=== PATIENT | female | born 1980 | race Caucasian/White ===

== ENCOUNTER 2016-06-15 10:45 | Inpatient (IN) | payer OTHER ==
[~2016-06-15] VITALS: Ht 162.6 cm; Wt 91.5 kg
[2016-06-15] MEDS ORDERED: BENA25CA4 PO (11:07)
[2016-06-15] MEDS ORDERED: NS 1,000 ML IV ONE (12:15)
[2016-06-15 12:31] LABS: CONTROL LINE HCG INT CTR LINE PRESENT
[2016-06-15 12:44] LABS: ALBUMIN/GLOBULIN RATIO 1.29 (1.00-1.93); ALKALINE PHOSPHATASE 70 U/L (45-117); ALT/SGPT 23 U/L (12-78); ANION GAP 9 MEQ/L (8-16); AST/SGOT 12 U/L (15-37); BILIRUBIN,DIRECT < 0.1 MG/DL (0.0-0.2); BILIRUBIN,TOTAL 0.3 MG/DL (0.2-1.0); BLOOD UREA NITROGEN 11 MG/DL (7-18); CALCIUM LEVEL 8.8 MG/DL (8.5-10.1); CARBON DIOXIDE LEVEL 26 MEQ/L (21-32); CHLORIDE LEVEL 105 MEQ/L (98-107); CREATININE FOR GFR 0.74 MG/DL (0.55-1.02); GLOMERULAR FILTRATION RATE > 60.0 (>60); GLUCOSE, FASTING 83 MG/DL (70-105); POTASSIUM SERUM 3.5 MEQ/L (3.5-5.1); SODIUM LEVEL 140 MEQ/L (136-145); TOTAL PROTEIN 7.1 GM/DL (6.4-8.2)
[2016-06-15 13:01] LABS: ERYTHROCYTE SEDIMENTATION RATE 15 mm/hr (0-20); MYOGLOBIN 37 NG/ML (13-71)
[2016-06-15 14:59] LABS: BASO % 0.3 % (0.0-1.0); EOS % 0.2 % (0.0-3.0); LARGE UNSTAINED CELL # 0.2 K/mm3 (0.0-0.4); LARGE UNSTAINED CELL % 1.3 % (0.0-4.0); LYMPH # 4.9 K/mm3 (1.5-4.5); MEAN CORPUSCULAR HEMOGLOBIN 27.9 pg (27.0-33.0); MEAN CORPUSCULAR HGB CONC 33.2 g/dl (32.0-36.5); MEAN CORPUSCULAR VOLUME 84.1 fl (80.0-96.0); MONO # 0.7 K/mm3 (0.0-0.8); MONO % 4.8 % (0.0-5.0); NEUTROPHILS % 60.4 % (36.0-66.0); PLATELET COUNT, AUTOMATED 364 k/mm3 (150-450); RED CELL DISTRIBUTION WIDTH 12.6 % (11.5-14.5); WHITE BLOOD COUNT 14.8 K/mm3 (4.0-10.0)
[2016-06-15] MEDS ORDERED: ONDANSETRON 4 MG TAB (S0181) PO PRN (15:15)
[2016-06-15] MEDS ORDERED: ONDANSETRON 4MG/2ML VIAL (J2405) IV PRN (15:15)
--- NOTE | 2016-06-15 16:11 | HPEPDOC ---
General Date of Admission Jun 15, 2016 at 15:02 Other Providers PCP: Dr. Greyson Parker Attending Physician: VICKI NAVARRO Chief Complaint The patient is a 35-year-old female admitted with a reason for visit of Pre- Syncope. Source: Patient Exam Limitations: No limitations Timing/Duration: Day(s) (11), This morning Severity: Moderate Associated Symptoms: Cough, Rash, Weakness, Dizziness History of Present Illness PRIMARY CARE PROVIDER: Dr. Greyson Parker CHIEF COMPLAINT: dizziness, heart palpitations, feels like fainting, facial flushing, tremors, upper extremity rash x 4-6 episodes HISTORY OF PRESENT ILLNESS: This is a 35-year-old female with a past medical history of a heart murmur, fibromyalgia, gestational diabetes, mononucleosis when a teenager, influenza A, history of chronic upper respiratory tract infections with secondary dehydration, who presents today for an on and off 11 day history of 4 -6 episodes of pre-syncope associated with dizziness, facial flushing, heart palpitations, chills, tremors, cool extremities, and "mottling/blotchiness of the arms and legs". 2 Fridays ago, patient went to the ER for the above symptoms in [place] and was diagnosed with influenza A, was given IV fluids for dehydration, and sent home. The second episode of presyncope occurred on June 05 and the patient was seen in [place] ER for vomiting and diarrhea, and sent back home. The third episode occurred on June 06 and the patient was seen in [place] ER for similar symptoms as well as burning in the chest and dizziness, which was thought to be indigestion from vomiting and influenza and the patient was treated with Maalox, Pepcid, Viscous Lidocaine, fluids, pantoprazole, and Tessalon Perles. She was then sent home. The fourth episode occurred last Tuesday night 4 days ago and the patient was seen in [facility] ER. She reports that she felt like she was going to pass out again, became dizzy , tachypneic, had cold extremities, and a hot face. States that she was told that it was a histamine allergic reaction was given IV Benadryl, and sent home with 40 mg of prednisone, 40 mg of pantoprazole on discharge, and told to follow -up with her PCP. Yesterday, the patient states she was in the [facility] ER and seen for the same symptoms and given Solu-Medrol, Benadryl, Pepcid, and told to follow up with her PCP. Patient states that she tried to get an early appointment with her PCP yesterday however he was not able to see her earlier than today. She was advised by her PCP to stop taking prednisone and pantoprazole around 4 PM yesterday. 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 States she was in between patients when another episode of her presyncope occurred. She also states that her eyes have a foggy sensation to them when episodes occur. In addition, the patient states that the episodes occur in waves, they have a sudden onset, they get worse as time goes on and buildup, and then they calm down. She also admits that the dizziness is more of a lightheadedness and motion sickness-type feeling but not a room spinning dizziness. At this point in time, the patient states she has a massive headache, ears feel plugged, she has a sore throat, and her sinuses are burning from her face down to her stomach. The patient denies fever, chills, nausea, vomiting, diarrhea, muscle aches/pains , dysuria, hematuria. She admits to severe exhaustion, neck tightness, cough, constipation, burning in the head and a headache, plugged ears, burning type chest pain that comes from the stomach up, soreness and burning in the abdomen, petechiae. She also admits to a mucousy stool from the day prior. In the [facility] emergency department, a workup was done that showed an unremarkable CBC with a mildly elevated WBC of 14.8, CMP which was within normal limits, one negative troponin, negative CRP, negative test, and negative d-dimer. An EKG that showed sinus rhythm at a rate of 62 bpm with a normal axis and no ST segment elevation/depression with some low voltage and precordial leads. Orthostatic vitals were done which were also negative. The patient was treated with 1 L of normal saline IV bolus, 4 mg of Zofran, given a Zofran injection, and 600 mg of ibuprofen. ALLERGIES: Acetaminophen associated with elevated liver function tests Amoxicillin associated with anaphylaxis Trovafloxacin associated with anaphylaxis Seasonal allergies PAST MEDICAL HISTORY: Heart murmur Fibromyalgia Gestational diabetes Mononucleosis when teenager Influenza every Chronic upper respiratory tract infections and secondary dehydration PAST SURGICAL HISTORY: 1 Tubal ligation Ablation Laparoscopic cholecystectomy ERCP 1997 Tonsillectomy and adenoidectomy MEDICATIONS: Benadryl. 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 No recent travel FAMILY HISTORY: Father: Multiple sclerosis, blood clots (fairly recent) Mother: Gestational diabetes Sister: Severe migraines Maternal grandparents: Hypertension and cancer of unknown type Maternal grandmother: CVA CODE STATUS: Full code No advanced directives. REVIEW OF SYSTEMS: Constitutional: denies fevers, chills, night sweats, recent weight gain/loss HEENT: Head: Admits to sinus and frontal headache. Currently, denies dizziness, light-headedness. Eyes: denies blurry vision, double vision. Ears: denies hearing loss, tinnitus, admits to plugged ears. Nose: admits to sinus pain, pressure. Denies rhinorrhea, postnasal drip. Throat: Admits to sore throat, cough, difficulty swallowing. Cardiovascular: Admits to burning from the sinuses down to through the chest and abdomen. Denies palpitations currently. Respiratory: denies shortness of breath, difficulty breathing Gastrointestinal: denies nausea, vomiting, diarrhea, melena, hematochezia. Admits to constipation and generalized soreness/burning in the abdomen. : denies dysuria, hematuria Musculoskeletal: denies muscle / joint stiffness, pain, swelling. Admits to Neck Tightness. Neurological: denies numbness, tingling, paresthesias, focal weakness. Lymphatics: Admits to feeling like her neck glands are swollen. Integumentary: Admits to mottling and blotching of her skin on her arms, hands, abdomen. Endocrine: Admits to increased urinary frequency but no burning or pain with urination. Admits to extreme fatigue. Denies polydipsia. PHYSICAL EXAMINATION: Initial ED Vitals: Temperature 97.2, pulse 74, respiratory rate 16, pulse ox: 100% room air, blood pressure 149/78 (101) General: HEENT: Head: normocephalic, atraumatic. +Tenderness to palpation of frontal, ethmoidal, and maxillary sinuses bilaterally. Eyes: pupils equally reactive to light, conjunctiva are pink, sclera are nonicteric. Nose: No external lesions. Ears: Grossly normal hearing bilaterally. Throat: buccal mucosa is pink and moist with no lesions in the oropharynx Respiratory: clear to auscultation bilaterally with no wheezes, rales, or rhonchi. Cardiovascular: regular rate and rhythm, with no murmurs, rubs or gallops. Abdomen: soft, nontender, nondistended, no hepatosplenomegaly appreciated. Bowel sounds present. Scattered Petechiae noted on abdomen. Extremities: 5/5 strength in upper and lower extremities bilaterally, no swelling in either lower extremity bilaterally. Neurological: sensation intact and symmetrical in upper and lower extremities bilaterally Musculoskeletal: some tenderness to palpation of paraspinal cervical muscles bilaterally. Lymphatics: no palpable lymph nodes, swollen glands Integumentary: +petechiae on dorsal surface of hands, arms, and abdomen Vascular: +2 dorsalis pedis and radial pulses palpable and symmetrical bilaterally LABORATORY DATA: See below MICROBOIOLOGY: See below ELECTROCARDIOGRAM: As stated above. RADIOLOGY: No imaging. ASSESSMENT: 35-year-old female is presenting for presyncopal episodes of unknown etiology. PLAN: #1. Presyncope: Admit patient to the IM service and monitor on telemetry. EKG showed normal sinus rhythm with no ST-T wave abnormalities. Orthostatics done today were negative. Obtain echocardiogram to rule out cardiac abnormality. Cycle another set of troponins as patient reports burning from her abdomen going all the way up to her chest area. Order TSH to assess for possible thyroid abnormalities. Encourage PO hydration. Hold IV fluids for now as patient tolerating PO, no electrolyte abnormalities, and was already given 1 liter bolus of IVF in ER. Zofran for nausea.1st troponin was negative in the ER. Give GI cocktail for stomach upset and burning likely secondary to GI irritation from influenza and vomiting. Give Benadryl for rash reaction. We'll order a.m. labs CBC, BMP, and Mg daily. Differential includes vasovagal syndrome , dehydration, gastroenteritis, arrhythmia, residual flulike symptoms, versus anxiety. #2 Leukocytosis of 14.8: most likely secondary to influenza/viral illness and/ or recent steroid treatments. Continue to monitor CBC. #3. Sinusitis on physical exam: Patient complaining of headache and facial sinus pressure. We'll start Sudafed. #4. Abdominal pain/Soreness: Likely secondary to flu-like illness and vomiting causing GI irritation. Patient reports burning in abdomen going all the way up to chest. Will give GI cocktail, famotidine. #5 Petechiael Rash: We'll give Benadryl for any rash/allergic reaction. #6 Fibromyalgia: Ibuprofen PRN pain. #7 DVT prophylaxis: Mechanical via SCDs. CODE STATUS: Full Code. Immunizations as per protocol. My preceptor for this patient encounter was Dr. Vicki Navarro, and was physically present in the building during the encounter and was fully available. As needed, all aspects of the patient interview, examination, medical decision making process, and medical care plan development were reviewed and approved by the preceptor. Preceptor is aware and concurs with the plan as stated in the body of this note and will attest to such by his/her cosignature. Home Medications Scheduled PRN Diphenhydramine HCl (Benadryl Allergy) 25 Mg Cap 25 MG PO PRN ALLERGIC REACTION (Reported) Allergies Coded Allergies: Amoxicillin (Verified Allergy, Severe, ANAPHYLAXIS, 06/15/16) Trovafloxacin (Verified Allergy, Severe, ANAPHYLAXIS, 06/15/16) Acetaminophen (Verified Adverse Reaction, Mild, MESSE WITH MY LIVER FUNCTION, 06/15/16) Social History * Smoker: current smoker Alcohol: Denies Drugs: denies Recent Travel/Sick Contacts: Denies: Recent sick contacts, Recent travel Vital Signs As above. Laboratory Data Labs 24H Laboratory Tests 2 06/15/16 11:31: Aspartate Amino Transf (AST/SGOT) 12L, Alanine Aminotransferase (ALT/SGPT) 23, Alkaline Phosphatase 70, Total Bilirubin 0.3, Direct Bilirubin < 0.1, Albumin 4.0, Albumin/Globulin Ratio 1.29, Anion Gap 9, White Blood Count 14.8H, Red Blood Count 4.84, Hemoglobin 13.5, Hematocrit 40.7, Mean Corpuscular Volume 84.1 , Mean Corpuscular Hemoglobin 27.9, Mean Corpuscular Hemoglobin Concent 33.2, Red Cell Distribution Width 12.6, Platelet Count 364, Neutrophils (%) (Auto) 60.4, Lymphocytes (%) (Auto) 33.0, Monocytes (%) (Auto) 4.8, Eosinophils (%) ( Auto) 0.2, Basophils (%) (Auto) 0.3, Neutrophils # (Auto) 9.0H, Lymphocytes # ( Auto) 4.9H, Monocytes # (Auto) 0.7, Eosinophils # (Auto) 0.0, Basophils # (Auto ) 0.0, C-Reactive Protein, Quantitative < 0.30, Calcium Level 8.8, Creatine Kinase MB 1.0, Creatine Kinase MB Relative Index 1.63, D-Dimer, Quantitative 490.6, Erythrocyte Sedimentation Rate 15, Glomerular Filtration Rate > 60.0, Human Chorionic Gonadotropin, Qual NEGATIVE, Large Unclassified Cells # 0.2, Large Unclassified Cells % 1.3, Myoglobin 37, Total Creatine Kinase 61, Total Protein 7.1, Troponin I < 0.02 CBC/BMP Laboratory Tests 06/15/16 11:31 Red Blood Count 4.84, Mean Corpuscular Volume 84.1, Mean Corpuscular Hemoglobin 27.9, Mean Corpuscular Hemoglobin Concent 33.2, Red Cell Distribution Width 12.6 , Neutrophils (%) (Auto) 60.4, Lymphocytes (%) (Auto) 33.0, Monocytes (%) (Auto ) 4.8, Eosinophils (%) (Auto) 0.2, Basophils (%) (Auto) 0.3, Neutrophils # (Auto ) 9.0 H, Lymphocytes # (Auto) 4.9 H, Monocytes # (Auto) 0.7, Eosinophils # (Auto ) 0.0, Basophils # (Auto) 0.0 Plan / VTE VTE Prophylaxis Ordered?: Yes (SCDs) GME ATTESTATION GME ATTESTATION My preceptor for this patient encounter was physically present in the building during the encounter and was fully available. As needed, all aspects of the patient interview, examination, medical decision making process, and medical care plan development were reviewed and approved by the preceptor. Preceptor is aware and concurs with the plan as stated in the body of this note and will attest to such by his/her cosignature. ATTENDING NOTE I, Vicki Navarro, have seen and examined the above patient and agree with the plan as documented above SHARI LOMELI OGME-1 Jun 15, 2016 16:11 VICKI NAVARRO Jun 15, 2016 21:18
[2016-06-15 16:36] VITALS: BP 105/53
[2016-06-15] MEDS ORDERED: diphenhydrAMINE 25 MG CAP PO PRN (16:45)
[2016-06-15] MEDS ORDERED: GI COCKTAIL 50ML BTL(HYOSCYAMINE/MAALOX/LIDOCAINE VISCOUS)(1:3:1) PO PRN (16:45)
[2016-06-15] MEDS: IBUPROFEN 600 MG TAB PO PRN (18:06)
[2016-06-15 20:00] VITALS: BP 127/74
[2016-06-15] MEDS: FAMOTIDINE 20 MG TAB PO SCH (20:03)
[2016-06-15 22:00] VITALS: BP 137/65
[2016-06-15 22:50] VITALS: BP 134/69
[2016-06-16] VITALS (10 sets, daily range): BP systolic 96–150; BP diastolic 53–75
[2016-06-16 00:04] LABS: MAGNESIUM LEVEL 2.2 MG/DL (1.8-2.4)
[2016-06-16] MEDS: PSEUDOEPHEDRINE 30 MG TAB PO SCH ×3 (00:18→20:34)
[2016-06-16] MEDS: PANTOPRAZOLE 40MG INJ (PROTONIX) (C9113) IV SCH ×3 (00:18→20:34)
[2016-06-16 05:35] LABS: BASO % 0.5 % (0.0-1.0); EOS # 0.1 K/mm3 (0.0-0.50); EOS % 0.6 % (0.0-3.0); LARGE UNSTAINED CELL # 0.1 K/mm3 (0.0-0.4); LARGE UNSTAINED CELL % 1.3 % (0.0-4.0); LYMPH % 52.3 % (24.0-44.0); MEAN CORPUSCULAR HEMOGLOBIN 29.5 pg (27.0-33.0); MEAN CORPUSCULAR HGB CONC 34.1 g/dl (32.0-36.5); MEAN CORPUSCULAR VOLUME 86.4 fl (80.0-96.0); MONO # 0.5 K/mm3 (0.0-0.8); MONO % 5.2 % (0.0-5.0); NEUTROPHILS # 3.8 K/mm3 (1.8-7.7); NEUTROPHILS % 40.1 % (36.0-66.0); PLATELET COUNT, AUTOMATED 282 k/mm3 (150-450); RED CELL DISTRIBUTION WIDTH 12.8 % (11.5-14.5)
[2016-06-16 05:48] LABS: WHITE BLOOD COUNT 9.4 K/mm3 (4.0-10.0)
[2016-06-16 05:57] LABS: ANION GAP 10 MEQ/L (8-16); BLOOD UREA NITROGEN 13 MG/DL (7-18); CARBON DIOXIDE LEVEL 23 MEQ/L (21-32); CHLORIDE LEVEL 105 MEQ/L (98-107); CREATININE FOR GFR 0.64 MG/DL (0.55-1.02); GLOMERULAR FILTRATION RATE > 60.0 (>60); GLUCOSE, FASTING 77 MG/DL (70-105); POTASSIUM SERUM 3.6 MEQ/L (3.5-5.1); SODIUM LEVEL 138 MEQ/L (136-145)
[2016-06-16] MEDS: VANCOMYCIN ORAL SOL 250MG/5ML ORAL SYRINGE PO SCH ×3 (06:14→17:48)
[2016-06-16] MEDS: FAMOTIDINE 20 MG TAB PO SCH ×2 (09:28→20:34)
--- NOTE | 2016-06-16 11:01 | ECGEPIP ---
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
--- NOTE | 2016-06-16 11:54 | IPNPDOC ---
Text Note Date of Service The patient was seen on 06/16/16. VS,Fishbone, I+O VS, Fishbone, I+O Laboratory Tests 06/16/16 05:21 Calcium Level 8.0 L, Red Blood Count 4.33, Mean Corpuscular Volume 86.4, Mean Corpuscular Hemoglobin 29.5, Mean Corpuscular Hemoglobin Concent 34.1, Red Cell Distribution Width 12.8, Neutrophils (%) (Auto) 40.1, Lymphocytes (%) (Auto) 52.3 H, Monocytes (%) (Auto) 5.2 H, Eosinophils (%) (Auto) 0.6, Basophils (%) ( Auto) 0.5, Neutrophils # (Auto) 3.8, Lymphocytes # (Auto) 5.0 H, Monocytes # ( Auto) 0.5, Eosinophils # (Auto) 0.1, Basophils # (Auto) 0.0 Vital Signs Date Time Temp Pulse Resp B/P Pulse Ox O2 Delivery O2 Flow Rate FiO2 06/16/16 08:30 Room Air 06/16/16 08:00 96.3 64 18 150/74 97 I&O- Last 24 Hours up to 6 AM 06/16/16 06:00 Intake Total 1200 ml Output Total 1000 ml Balance 200 ml SHARI LOMELI OGME-1 Jun 16, 2016 11:54
--- NOTE | 2016-06-16 11:58 | IPNPDOC ---
Text Note Date of Service The patient was seen on 06/16/16. NOTE Subjective: 35 yo F was seen and examined at bedside. She denies any dizziness, blurred vision, fevers, chills, chest pain, SOB, nausea, vomiting, constipation. Denies urinary incontinence, dysuria, hematuria, hematochezia. Admits to a loose unformed green mucous-type bowel movements. Admits to diarrhea , weakness and fatigue. Admits to palpitations, pressure behind her head and eyes, squeezing feeling in her shoulders, burning and flushing sensation in her neck, chest, and under armpits. Admits to soreness/burning abdominal pain, petechial rash, diarrhea, weakness, and fatigue. Nursing reports patient refusing GI cocktail. Patient states refusing GI cocktail as it does not help her and makes her nauseous. Also states that her pulse went into the 40s overnight. Objective: Vitals: T 96.3 , P64, RR 18, BP 150/74 (99), Pulse Ox: 97% on room air. I's/O's: 360/500 mLs. UO: 500 mLs General: Pleasant female resting comfortably in bed, sitting up at head of bed. Patient awake, alert and oriented, verbal and able to answer questions appropriately. She does not appear to be in any acute distress. HEENT: Normocephalic Atraumatic. Grossly normal hearing bilaterally. Sclera Nonicteric. No external nasal lesions. Endocrinology: No thyromegaly. Neck: Supple. No cervical LAD bilaterally. Heart: Regular rate and rhythm, normal S1-S2. No murmurs, rubs, clicks or gallops Chest: Symmetrical chest rise bilaterally. Lungs: Clear to auscultation bilaterally. No wheezes, rales, or rhonchi. Abdomen: Active bowel sounds, soft, nontender, no masses to palpation. Extremities: No clubbing, cyanosis, edema. Without amputations/deformities. No pedal edema. MSK: Can sit up without dizziness. Integumentary: Minor petechiae scattered on dorsal surface of upper extremities and hands. Vascular: +2 radial pulses bilaterally. Psychiatric: Noted a bit of an anxious aspect. Laboratory data: Please see below. Microbiology: Please see below. Stool cultures positive for C. difficile A/B. Imaging: No imaging done today. Assessment/Plan: ASSESSMENT: 35-year-old female is presenting for presyncopal episodes of unknown etiology. PLAN: #1. Presyncope: Continue to monitor rhythm on monitoring specialist. Orthostatics done at midnight last evening were negative in addition to the first set of orthostatics obtained prior. Follow up results of echocardiogram when available to rule out wall function abnormalities or valvular cardiac abnormalities. Troponins were negative x 3. TSH was normal at 3.010. Encourage oral hydration. Zofran for nausea. GI upset and burning sensation likely related to C. diff. Give Benadryl for rash reaction. Follow up a.m. labs CBC, BMP, and Mg in the morning. #2. C. 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 diff. Began vancomycin. Continue regular diet. Monitor for improvement to formed stools.If tolerates diet and starts having formed stools, will consider discharge in 24-48 hours. #3 Leukocytosis of 14.8: most likely secondary to influenza/viral illness and/ or recent steroid treatments. Continue to monitor CBC. #4. Sinusitis on physical exam: Patient complaining of facial sinus pressure. Continue sudafed 30 mg q6 hours as increasing sudafed dose can induce tachyphylaxis and rebound sinus pressure. Will order nasal saline spray to aid to relief sinus pressure. Will monitor for improvement. #5. Abdominal pain/Soreness: Likely secondary to C. diff, flu-like illness, and vomiting causing GI irritation. Patient reports burning in abdomen going all the way up to chest. Patient refuses GI cocktail. Will continue protonix and famotidine. #6 Petechiael Rash: We'll give Benadryl for any rash/allergic reaction. #7 Fibromyalgia: Ibuprofen PRN pain. #8 DVT prophylaxis: Mechanical via SCDs. Immunizations as per protocol. VS,Fishbone, I+O VS, Fishbone, I+O Laboratory Tests 06/16/16 05:21 Calcium Level 8.0 L, Red Blood Count 4.33, Mean Corpuscular Volume 86.4, Mean Corpuscular Hemoglobin 29.5, Mean Corpuscular Hemoglobin Concent 34.1, Red Cell Distribution Width 12.8, Neutrophils (%) (Auto) 40.1, Lymphocytes (%) (Auto) 52.3 H, Monocytes (%) (Auto) 5.2 H, Eosinophils (%) (Auto) 0.6, Basophils (%) ( Auto) 0.5, Neutrophils # (Auto) 3.8, Lymphocytes # (Auto) 5.0 H, Monocytes # ( Auto) 0.5, Eosinophils # (Auto) 0.1, Basophils # (Auto) 0.0 Vital Signs Date Time Temp Pulse Resp B/P Pulse Ox O2 Delivery O2 Flow Rate FiO2 06/16/16 08:30 Room Air 06/16/16 08:00 96.3 64 18 150/74 97 I&O- Last 24 Hours up to 6 AM 06/16/16 06:00 Intake Total 1200 ml Output Total 1000 ml Balance 200 ml GME ATTESTATION GME ATTESTATION My preceptor for this patient encounter was Dr. Blayne Miramontes, and was physically present in the building during the encounter and was fully available. As needed, all aspects of the patient interview, examination, medical decision making process, and medical care plan development were reviewed and approved by the preceptor. Preceptor is aware and concurs with the plan as stated in the body of this note and will attest to such by his/her cosignature. BLAYNE LOMELI OGME-1 Jun 16, 2016 11:58
[2016-06-16] MEDS ORDERED: SODIUM CHLORIDE NASAL 0.65% SPRAY BTL (OCEAN) PRN (19:15)
[2016-06-17] VITALS: BP_SYST 102; BP_SYST 96; BP_SYST 99; BP_DIAS 54; BP_DIAS 61; BP_DIAS 66
[2016-06-17] MEDS: IBUPROFEN 600 MG TAB PO PRN ×3 (00:44→20:34)
[2016-06-17] MEDS: VANCOMYCIN ORAL SOL 250MG/5ML ORAL SYRINGE PO SCH ×4 (00:45→18:05)
[2016-06-17 06:00] VITALS: BP 119/59
--- NOTE | 2016-06-17 06:00 | ECHO ---
DATE OF PROCEDURE: 06/16/2016 REFERRING PHYSICIAN: Dr. Vicki Navarro. INDICATION: Syncope. HEIGHT: 163 cm. WEIGHT: 91 kg. MEASUREMENTS: Left atrium: 3.4 cm Ventricular septum: 0.88 cm Posterior wall: 0.88 cm Left ventricle diastole: 3.9 cm Aortic root: 3.6 cm LVOT: 1.8 cm Inferior vena cava: 1.3 cm DOPPLER MEASUREMENTS: Aortic valve velocity: 163 cm/s LVOT velocity: 136 cm/s LVOT VTI: 25.2 cm Trace mitral regurgitation within normal limits. Mitral E velocity: 96.3 cm/s Mitral A velocity: 51.7 cm/s Mitral deacceleration time: 229 ms Very mild tricuspid regurgitation within normal limits. Pulmonary artery systolic pressure estimated to be 11 mmHg by pulmonary acceleration time. MITRAL ANNULAR TISSUE DOPPLER: E-prime septal: 11.8 cm/s E-prime lateral: 15.5 cm/s DESCRIPTION: Rhythm was sinus. Image quality was good. No pericardial effusion. This was a 2D, M-mode, color flow Doppler and pulsed wave Doppler examination and included mitral annular tissue Doppler. CONCLUSIONS: 1. Normal echocardiogram Doppler. 2. Normal LV internal dimensions and wall thickness. No regional wall motion abnormalities. Normal LV systolic function. LVEF 65% by visual estimate. Normal LV diastolic function.
--- NOTE | 2016-06-17 06:53 | ECGEPIP ---
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
[2016-06-17 07:18] LABS: BASO % 0.3 % (0.0-1.0); EOS # 0.1 K/mm3 (0.0-0.50); EOS % 1.4 % (0.0-3.0); LARGE UNSTAINED CELL # 0.1 K/mm3 (0.0-0.4); LARGE UNSTAINED CELL % 1.1 % (0.0-4.0); LYMPH # 3.3 K/mm3 (1.5-4.5); LYMPH % 32.6 % (24.0-44.0); MEAN CORPUSCULAR HEMOGLOBIN 29.4 pg (27.0-33.0); MEAN CORPUSCULAR HGB CONC 34.6 g/dl (32.0-36.5); MONO # 0.6 K/mm3 (0.0-0.8); MONO % 6.3 % (0.0-5.0); NEUTROPHILS # 5.8 K/mm3 (1.8-7.7); NEUTROPHILS % 58.2 % (36.0-66.0); PLATELET COUNT, AUTOMATED 277 k/mm3 (150-450); RED CELL DISTRIBUTION WIDTH 12.7 % (11.5-14.5); WHITE BLOOD COUNT 9.9 K/mm3 (4.0-10.0)
[2016-06-17 07:29] LABS: ANION GAP 9 MEQ/L (8-16); BLOOD UREA NITROGEN 12 MG/DL (7-18); CALCIUM LEVEL 8.3 MG/DL (8.5-10.1); CARBON DIOXIDE LEVEL 25 MEQ/L (21-32); CHLORIDE LEVEL 104 MEQ/L (98-107); CREATININE FOR GFR 0.67 MG/DL (0.55-1.02); GLOMERULAR FILTRATION RATE > 60.0 (>60); GLUCOSE, FASTING 90 MG/DL (70-105); MAGNESIUM LEVEL 2.1 MG/DL (1.8-2.4); POTASSIUM SERUM 3.7 MEQ/L (3.5-5.1); SODIUM LEVEL 138 MEQ/L (136-145)
[2016-06-17] MEDS: FAMOTIDINE 20 MG TAB PO SCH ×2 (08:49→20:33)
[2016-06-17] MEDS: PSEUDOEPHEDRINE 30 MG TAB PO SCH ×3 (08:52→20:32)
[2016-06-17] MEDS: PANTOPRAZOLE 40MG INJ (PROTONIX) (C9113) IV SCH ×2 (08:53→20:33)
--- NOTE | 2016-06-17 10:03 | IPNPDOC ---
Text Note Date of Service The patient was seen on 06/17/16. NOTE Subjective: 35 yo F was seen and examined at bedside. She denies blurred vision, fevers, chills, chest pain, SOB, nausea, vomiting, constipation. Denies urinary incontinence, dysuria, hematuria, hematochezia. Admits to a more formed stool today after eating toast. Admits to intermittent dizziness at times, diarrhea. Denies being as weak and fatigued as prior. Denies as severe flushing/ heat sensation symptoms as prior. Admits to soreness/burning abdominal pain and sore throat. Requesting medication to soothe sore throat. Objective: Vitals: T 98.2 , P 87, RR 18, BP 119/59 (79), Pulse Ox: 98% on room air. Orthostatic VS done at midnight on 06/17/16: Supine: 102/54 (70) Sittin/66 (77) Standin/61 (73) I's/O's: 0/400 mLs. -400 mLs balance. UO: 400 mLs. BMs: 1 yesterday. General: Pleasant female resting comfortably in bed, sitting up at head of bed. Patient awake, alert and oriented, verbal and able to answer questions appropriately. She does not appear to be in any acute distress. HEENT: Normocephalic Atraumatic. Grossly normal hearing bilaterally. Sclera Nonicteric. No external nasal lesions. Endocrinology: No thyromegaly. Neck: Supple. No cervical LAD bilaterally. Heart: Regular rate and rhythm, normal S1-S2. No murmurs, rubs, clicks or gallops Chest: Symmetrical chest rise bilaterally. Lungs: Clear to auscultation bilaterally. No wheezes, rales, or rhonchi. Abdomen: Active bowel sounds, soft, nontender, no masses to palpation. Extremities: No clubbing, cyanosis, edema. Without amputations/deformities. No pedal edema. MSK: Can sit up without dizziness. Vascular: +2 radial pulses bilaterally. Psychiatric: Noted a bit of an anxious aspect. Laboratory data: Please see below. Imaging: No imaging done today. Echocardiogram on 06/15/16 showed: 1. Normal echocardiogram Doppler. 2. Normal LV internal dimensions and wall thickness. No regional wall motion abnormalities. Normal LV systolic function. LVEF 65% by visual estimate. Normal LV diastolic function. Assessment/Plan: ASSESSMENT: 35-year-old female is presenting for presyncopal episodes of unknown etiology. PLAN: #1. Presyncope: Continue to monitor rhythm on property assessment monitor. Orthostatics done at midnight last evening were negative in addition to the first 2 sets of orthostatics obtained prior. Echocardiogram shows normal LV wall thickness, no regional wall motion abnormalities, normal LV systolic function and EF of 65%, and normal LV diastolic function. Suspect presyncopal episodes and associated symptoms to be related to C. diff toxin effect in combination with influenza viral illness prior as well as recent sinusitis hx in addition to dehydration. Encourage oral hydration. Zofran for nausea. GI upset and burning sensation likely related to C. diff./toxin effect. Give Benadryl for rash reaction. Follow up a.m. labs CBC, BMP, and Mg in the morning. #2. C. Difficile Diarrhea: Improving with more formed stool today. Continue vancomycin. Continue regular diet. If tolerates diet and starts having more formed stools, will consider discharge in 24-48 hours. #3. Sore Throat: Patient c/o of dryness in throat and sore throat. Will order cepacol lozenges q1 hours PRN. #4. Leukocytosis: Resolved. WBC at 9.9 today and WNL. Most likely secondary to influenza/viral illness and/or recent steroid treatments. Continue to monitor CBC. #5. Sinusitis: Patient complaining of facial sinus pressure. Continue sudafed 30 mg q6 hours as increasing sudafed dose can induce tachyphylaxis and rebound sinus pressure. Have ordered nasal saline ocean spray PRN nasal congestion and sinus pressure. Will monitor for improvement. #6. Abdominal pain/Soreness: Likely secondary to C. diff/toxin effect, flu-like illness, and prior vomiting episodes causing GI irritation. Patient reports improvement of burning in abdomen. Will continue protonix and famotidine. GI cocktail still ordered if patient wants. #7 Petechiael Rash: We'll give Benadryl for any rash/allergic reaction. No new complaints today. #8 Fibromyalgia: Ibuprofen PRN pain. #9 DVT prophylaxis: Mechanical via SCDs. Immunizations as per protocol. VS,Fishbone, I+O VS, Fishbone, I+O Laboratory Tests 06/17/16 06:58 Calcium Level 8.3 L, Red Blood Count 4.34, Mean Corpuscular Volume 85.0, Mean Corpuscular Hemoglobin 29.4, Mean Corpuscular Hemoglobin Concent 34.6, Red Cell Distribution Width 12.7, Neutrophils (%) (Auto) 58.2, Lymphocytes (%) (Auto) 32.6, Monocytes (%) (Auto) 6.3 H, Eosinophils (%) (Auto) 1.4, Basophils (%) ( Auto) 0.3, Neutrophils # (Auto) 5.8, Lymphocytes # (Auto) 3.3, Monocytes # (Auto ) 0.6, Eosinophils # (Auto) 0.1, Basophils # (Auto) 0.0 Vital Signs Date Time Temp Pulse Resp B/P Pulse Ox O2 Delivery O2 Flow Rate FiO2 06/17/16 09:06 Room Air 06/17/16 06:00 98.2 87 18 119/59 98 I&O- Last 24 Hours up to 6 AM 06/17/16 05:59 Intake Total 1200 ml Output Total 2425 ml Balance -1225 ml GME ATTESTATION GME ATTESTATION My preceptor for this patient encounter was Dr. Blayne Miramontes, and was physically present in the building during the encounter and was fully available. As needed, all aspects of the patient interview, examination, medical decision making process, and medical care plan development were reviewed and approved by the preceptor. Preceptor is aware and concurs with the plan as stated in the body of this note and will attest to such by his/her cosignature. BLAYNE LOMELI OGME-1 Jun 17, 2016 10:03
[2016-06-17] MEDS: CEPACOL LOZENGE MT PRN ×2 (11:25→14:14)
[2016-06-17 14:00] VITALS: BP 117/58
[2016-06-17 20:00] VITALS: BP_SYST 110; BP_SYST 118; BP_SYST 126; BP_DIAS 60; BP_DIAS 64; BP_DIAS 72
[2016-06-18] VITALS: BP_SYST 108; BP_SYST 112; BP_DIAS 55
[2016-06-18] MEDS: CEPACOL LOZENGE MT PRN ×2 (00:14→06:23)
[2016-06-18] MEDS: VANCOMYCIN ORAL SOL 250MG/5ML ORAL SYRINGE PO SCH ×3 (00:14→12:41)
[2016-06-18 06:00] VITALS: BP_SYST 103; BP_SYST 109; BP_SYST 116; BP_DIAS 58; BP_DIAS 62; BP_DIAS 69
[2016-06-18] MEDS: IBUPROFEN 600 MG TAB PO PRN (06:24)
[2016-06-18 06:58] LABS: BASO % 0.3 % (0.0-1.0); EOS # 0.3 K/mm3 (0.0-0.50); EOS % 2.8 % (0.0-3.0); LARGE UNSTAINED CELL # 0.2 K/mm3 (0.0-0.4); LARGE UNSTAINED CELL % 1.3 % (0.0-4.0); LYMPH # 3.2 K/mm3 (1.5-4.5); LYMPH % 26.2 % (24.0-44.0); MEAN CORPUSCULAR HEMOGLOBIN 29.7 pg (27.0-33.0); MEAN CORPUSCULAR HGB CONC 34.4 g/dl (32.0-36.5); MEAN CORPUSCULAR VOLUME 86.3 fl (80.0-96.0); MONO # 0.5 K/mm3 (0.0-0.8); MONO % 4.2 % (0.0-5.0); NEUTROPHILS # 7.7 K/mm3 (1.8-7.7); NEUTROPHILS % 65.2 % (36.0-66.0); PLATELET COUNT, AUTOMATED 280 k/mm3 (150-450); RED CELL DISTRIBUTION WIDTH 12.7 % (11.5-14.5); WHITE BLOOD COUNT 11.7 K/mm3 (4.0-10.0)
[2016-06-18 07:17] LABS: ANION GAP 9 MEQ/L (8-16); BLOOD UREA NITROGEN 11 MG/DL (7-18); CALCIUM LEVEL 8.1 MG/DL (8.5-10.1); CARBON DIOXIDE LEVEL 27 MEQ/L (21-32); CHLORIDE LEVEL 104 MEQ/L (98-107); CREATININE FOR GFR 0.72 MG/DL (0.55-1.02); GLOMERULAR FILTRATION RATE > 60.0 (>60); GLUCOSE, FASTING 88 MG/DL (70-105); MAGNESIUM LEVEL 2.2 MG/DL (1.8-2.4); POTASSIUM SERUM 3.9 MEQ/L (3.5-5.1); SODIUM LEVEL 140 MEQ/L (136-145)
[2016-06-18] MEDS ORDERED: PSEUDOEPHEDRINE 30 MG TAB PO PRN (08:00)
[2016-06-18] MEDS: FAMOTIDINE 20 MG TAB PO SCH (08:17)
[2016-06-18] MEDS: PANTOPRAZOLE 40MG INJ (PROTONIX) (C9113) IV SCH (08:17)
[2016-06-18 09:00] VITALS: BP 132/54
[2016-06-18] MEDS ORDERED: VANC250C2 PO (10:50)
[2016-06-18] MEDS ORDERED: FAMO20TA PO (10:50)
--- NOTE | 2016-06-18 19:43 | DS.PDOC ---
Discharge Summary General Date of Admission Jun 16, 2016 at 09:27 Date of Discharge 06/18/16 Discharge Summary Date of Discharge: 06/18/16 PCP: Dr. Greyson Parker Attending Physician: Dr. Blayne Miramontes Consults: None Discharge diagnosis: Presyncope secondary to C. Difficile Diarrhea/Colitis Secondary diagnosis: Leukocytosis Sinusitis Abdominal Pain Petechial Rash Fibromyalgia Hospital course: This is a 35-year-old female with a past medical history of a heart murmur, fibromyalgia, gestational diabetes, mononucleosis when a teenager, influenza A, history of chronic upper respiratory tract infections with secondary dehydration, who presented on 06/15/16 for an on and off 11 day history of 4 -6 episodes of pre-syncope associated with dizziness, facial flushing, heart palpitations, chills, tremors, cool extremities, and "mottling/ blotchiness of the arms and legs" that looked like petechiae on physical examination on the flexure surfaces of the arms and dorsal surface of the hands. . 2 Fridays ago prior to presentation, patient went to the ER for the above symptoms in [place] and was diagnosed with influenza A, was given IV fluids for dehydration, and sent home. The second episode of presyncope occurred on June 05 and the patient was seen in [place] ER for vomiting and diarrhea, and sent back home. The third episode occurred on June 06 and the patient was seen in [place] ER for similar symptoms as well as burning in the chest and dizziness, which was thought to be indigestion from vomiting and influenza and the patient was treated with Maalox, Pepcid, Viscous Lidocaine, fluids, pantoprazole, and Tessalon Perles. She was then sent home. The fourth episode occurred the Tuesday prior 06/15/16, 4 days prior, and the patient was seen in [facility] ER. She reports that she felt like she was going to pass out again, became dizzy, tachypneic, had cold extremities, and a hot face. States that she was told that it was a histamine allergic reaction was given IV Benadryl, and sent home with 40 mg of prednisone, 40 mg of pantoprazole on discharge, and told to follow-up with her PCP. One day prior to presentation, the patient states she was in the [facility] ER and seen for the same symptoms and given Solu-Medrol, Benadryl, Pepcid, and told to follow up with her PCP. Patient states that she tried to get an early appointment with her PCP the day prior to presentation, however, he was not able to see her earlier than 06/15/16. She was advised by her PCP to stop taking prednisone and pantoprazole around 4 PM that day prior. 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 States she was in between patients when another episode of her presyncope occurred. She also stated that the dizziness was more of a lightheadedness and motion sickness -type feeling but not a room spinning dizziness. The patient denied fever, chills, nausea, vomiting, diarrhea, muscle aches/pains , dysuria, hematuria. She admitted to severe exhaustion, neck tightness, cough, constipation, burning in the head and a headache, plugged ears, burning type chest pain that comes from the stomach up, soreness and burning in the abdomen, petechiae. She also admitted to a mucousy stool from the day prior to presentation. In the [facility] emergency department, a workup was done that showed an unremarkable CBC with a mildly elevated WBC of 14.8, CMP which was within normal limits, one negative troponin, negative CRP, negative test, and negative d-dimer. An EKG that showed sinus rhythm at a rate of 62 bpm with a normal axis and no ST segment elevation/depression with some low voltage and precordial leads. Orthostatic vitals were done which were also negative. The patient was treated with 1 L of normal saline IV bolus, 4 mg of Zofran, given a Zofran injection, and 600 mg of ibuprofen. In the hospital, the patient tested positive for C. diff and was treated with vancomycin. On 06/16/16, the patient had a more formed stool than prior which was described to be green and "mucousy." Started to have resolution of her presyncope symptoms and did not report any more episodes of dizziness, palpitations, warm flushing, etc. She did report a burning feeling in her stomach, for which she was treated with pantoprazole for as well as offered GI cocktail, which she had refused due to side effects of nausea/vomiting. Was given sudafed and nasal saline spray for sinusitis. Was given cepacol lozenges for sore throat. Benadryl was ordered if she had developed any allergic reaction/worsening of her petechial rash, however, there was no exacerbation of her rash. Orthostatics were (-) x 3 throughout hospital stay. Was given DVT ppx with mechanical SCDs. The patient is clinically stable and has improved. Labs were unremarkable today, but did show an elevated WBC of 11.7 most likely due to C. diff. Please see below. Progress note on date of discharge: Subjective: Today, patient denies fevers, chills, dizziness, blurred vision, sore throat, earaches, runny nose, cough, chest pain, SOB, nausea, vomiting, diarrhea, weakness, fatigue, weight gain/loss, hematochezia, hematuria, rashes/lesions. States she is feeling better. Nursing reported that patient remained stable with no acute overnight events. Does not report a bowel movement. Admits to sinus facial pressure. Objective: Vitals: T98.4, P76, RR 18, BP 132/54 (80), Pulse Ox: 98% room air. I's/O's: 270/2000. -1730 mLs balance. General: Pleasant, middle-aged female resting comfortably in bed, sitting up. Patient awake, alert and oriented, verbal and able to answer questions appropriately. She does not appear to be in any acute distress. HEENT: Normocephalic Atraumatic. Grossly normal hearing bilaterally. Sclera Nonicteric. No external nasal lesions. Endocrinology: No thyromegaly. Neck: Supple. No cervical LAD bilaterally. Heart: Regular rate and rhythm, normal S1-S2. No murmurs, rubs, clicks or gallops Lungs: Clear to auscultation bilaterally. No wheezes, rales or rhonchi. Abdomen: Active bowel sounds, soft, nontender, nondistended, no masses to palpation. Extremities: No clubbing, cyanosis, edema. Without amputations/deformities. No pedal edema. MSK: Can sit up without dizziness. Vascular: +2 radial pulses bilaterally. +2 dorsalis pedis pulses bilaterally. Psychiatric: No signs of depression or anxiety. Labs: Please see below. Assessment: 35-year-old female presenting for presyncopal episodes of unknown etiology. Likely secondary to C. difficile colitis. Disposition/Plan: Discharge home today with 8 more days of 250 mg PO QID vancomycin, PRN home medication benadryl 25 mg allergy, and pepcid 20 mg PO bid for 30 days for burning in stomach/acid reflux symptoms. Follow up with PCP within 1 week. Continue home medications. Follow-up: Recommended with PCP in 7 days. Activity: No restrictions and as tolerated. Diet: Regular Medications on discharge: Vancomycin 250 mg PO QID for 8 days Pepcid 20 mg PO BID for 30 days Benadryl Allergy 25 mg PO PRN allergic reaction Time spent on discharge: 35 minutes. Vital Signs/I&Os Vital Signs Date Time Temp Pulse Resp B/P Pulse Ox O2 Delivery O2 Flow Rate FiO2 06/18/16 09:22 Room Air 06/18/16 09:00 98.4 76 18 132/54 98 I&O- Last 24 Hours up to 6 AM 06/18/16 06:00 Intake Total 1830 ml Output Total 5700 ml Balance -3870 ml Laboratory Data Labs 24H Laboratory Tests 2 06/18/16 06:37: Anion Gap 9, White Blood Count 11.7H, Red Blood Count 4.67, Hemoglobin 13.9, Hematocrit 40.3, Mean Corpuscular Volume 86.3, Mean Corpuscular Hemoglobin 29.7 , Mean Corpuscular Hemoglobin Concent 34.4, Red Cell Distribution Width 12.7, Platelet Count 280, Neutrophils (%) (Auto) 65.2, Lymphocytes (%) (Auto) 26.2, Monocytes (%) (Auto) 4.2, Eosinophils (%) (Auto) 2.8, Basophils (%) (Auto) 0.3, Neutrophils # (Auto) 7.7, Lymphocytes # (Auto) 3.2, Monocytes # (Auto) 0.5, Eosinophils # (Auto) 0.3, Basophils # (Auto) 0.0, Blood Urea Nitrogen 11, Creatinine 0.72, Sodium Level 140, Potassium Level 3.9, Chloride Level 104, Carbon Dioxide Level 27, Calcium Level 8.1L, Glomerular Filtration Rate > 60.0, Large Unclassified Cells # 0.2, Large Unclassified Cells % 1.3, Magnesium Level 2.2 CBC/BMP Laboratory Tests 06/18/16 06:37 Calcium Level 8.1 L, Red Blood Count 4.67, Mean Corpuscular Volume 86.3, Mean Corpuscular Hemoglobin 29.7, Mean Corpuscular Hemoglobin Concent 34.4, Red Cell Distribution Width 12.7, Neutrophils (%) (Auto) 65.2, Lymphocytes (%) (Auto) 26.2, Monocytes (%) (Auto) 4.2, Eosinophils (%) (Auto) 2.8, Basophils (%) (Auto ) 0.3, Neutrophils # (Auto) 7.7, Lymphocytes # (Auto) 3.2, Monocytes # (Auto) 0.5, Eosinophils # (Auto) 0.3, Basophils # (Auto) 0.0 Microbiology Microbiology 06/15/16 Gastrointestinal Tract Panel (PCR) - Final, Complete Clostridium Difficile A/B Discharge Medications Scheduled Famotidine (Pepcid) 20 Mg Tab 20 MG PO BID Vancomycin Hcl (Vancomycin HCl) 250 Mg Cap 250 MG PO QID Scheduled PRN Diphenhydramine HCl (Benadryl Allergy) 25 Mg Cap 25 MG PO PRN ALLERGIC REACTION (Reported) Allergies Coded Allergies: Amoxicillin (Verified Allergy, Severe, ANAPHYLAXIS, 06/15/16) Trovafloxacin (Verified Allergy, Severe, ANAPHYLAXIS, 06/15/16) Acetaminophen (Verified Adverse Reaction, Mild, MESSE WITH MY LIVER FUNCTION, 06/15/16) GME ATTESTATION GME ATTESTATION My preceptor for this patient encounter was Dr. Blayne Miramontes, and was physically present in the building during the encounter and was fully available. As needed, all aspects of the patient interview, examination, medical decision making process, and medical care plan development were reviewed and approved by the preceptor. Preceptor is aware and concurs with the plan as stated in the body of this note and will attest to such by his/her cosignature. BLAYNE LOMELI OGME-1 Jun 18, 2016 11:51 Discharge Medications Scheduled Famotidine (Pepcid) 20 Mg Tab 20 MG PO BID Vancomycin Hcl (Vancomycin HCl) 250 Mg Cap 250 MG PO QID Scheduled PRN Diphenhydramine HCl (Benadryl Allergy) 25 Mg Cap 25 MG PO PRN ALLERGIC REACTION (Reported) Allergies Coded Allergies: Amoxicillin (Verified Allergy, Severe, ANAPHYLAXIS, 06/15/16) Trovafloxacin (Verified Allergy, Severe, ANAPHYLAXIS, 06/15/16) Acetaminophen (Verified Adverse Reaction, Mild, MESSE WITH MY LIVER FUNCTION, 06/15/16) BLAYNE LOMELIFL-1 Jun 18, 2016 11:51 FUNCTION, 06/15/16) BLAYNE LOMELI [facility] Jun 18, 2016 11:51
== END 2016-06-18 12:50 | disposition home or self-care (01) | DRG 248 ==
LOC: M ED 14:03 → M ED INP 15:02 → M PCU 16:36 → OBSVTOIN 06-16 09:27 → M MS5PR 06-16 21:23
PROVIDERS: ADMIT Hospitalist; ATTEND Internal Medicine
DX: A04.7 Enterocolitis due to Clostridium difficile (principal); R55 Syncope and collapse; B96.89 Other specified bacterial agents as the cause of diseases classified elsewhere; R10.9 Unspecified abdominal pain; M79.7 Fibromyalgia; J32.9 Chronic sinusitis, unspecified; J02.9 Acute pharyngitis, unspecified; F17.210 Nicotine dependence, cigarettes, uncomplicated; R23.3 Spontaneous ecchymoses; D72.829 Elevated white blood cell count, unspecified; Z88.1 Allergy status to other antibiotic agents; Z88.6 Allergy status to analgesic agent; Z98.51 Tubal ligation status; Z82.49 Family history of ischemic heart disease and other diseases of the circulatory system; Z80.9 Family history of malignant neoplasm, unspecified; Z82.8 Family history of other disabilities and chronic diseases leading to disablement, not elsewhere classified; Z79.899 Other long term (current) drug therapy